=== PATIENT | female | born 1995 | race Caucasian/White ===

== ENCOUNTER 2017-05-25 19:28 | Emergency (ER) | payer OTHER ==
[2017-05-25] MEDS ORDERED: FLUCONAZOLE 150 MG TAB PO ONE (19:48)
[2017-05-25] MEDS ORDERED: cefTRIAXone SODIUM 1 GM VIAL IM ONE (19:48)
[2017-05-25 19:50] VITALS: BP 132/77; TEMP 98.9; O2SAT 97
--- NOTE | 2017-05-25 19:52 | ED.PDOC ---
History of Present Illness - General Chief Complaint: Abdominal Pain Stated Complaint: belly button drainage, bloating, right abd pain Time Seen by Provider: 05/25/17 19:48 Information Source: patient Exam Limitations: no limitations - History of Present Illness Initial Comments: Patient comes in for 1 day history of pain in the umbilicus with yellow drainage and swelling. She states some chills last night. She denies any emesis or nausea. She had a normal BM 2 days ago. She denies trauma to the area or piercing. Patient is otherwise healthy but does have HTN since delivery of her last child. Abdominal Pain Onset Location: periumbilical Pain Radiation: no radiation Quality: mild Timing/Duration: 24 hours Improving Factors: nothing Worsening Factors: nothing Associated Symptoms: fever/chills Review of Systems - Review of Systems Constitutional: States: chills. Denies: fever EENTM: States: no symptoms reported Respiratory: States: no symptoms reported. Denies: cough, short of breath, wheezing Cardiology: States: no symptoms reported. Denies: chest pain Gastrointestinal/Abdominal: States: abdominal pain. Denies: diarrhea, nausea, vomiting Genitourinary: States: no symptoms reported Skin: States: see HPI Past Medical History (General) - Patient Medical History Hx Seizures: No Hx Stroke: No Hx Dementia: No Hx Asthma: No Hx of COPD: No Hx Congestive Heart Failure: No Hx Pacemaker: No Hx Hypertension: Yes Hx Thyroid Disease: No Hx Diabetes: No Hx Gastroesophageal Reflux: No Hx Renal Disease: No Hx Cancer: No Hx of HIV: No Hx Hepatitis C: No Hx MRSA: No - Vaccination History Hx Tetanus, Diphtheria Vaccination: Yes Hx Influenza Vaccination: Yes Hx Pneumococcal Vaccination: No - Social History Hx Tobacco Use: Yes Hx Alcohol Use: No Hx Substance Use: No Hx Substance Use Treatment: No Hx Depression: Yes - Female History Hx Last Menstrual Period: 06/29/14 Patient : Yes Expected Date of Delivery:: 03/25/17 Hx Gestational Age: 33 Family Medical History - Family History Mother Family History: Unknown Living Status: Unknown Hx Family;Other: Kidney problems in family Physical Exam - Physical Exam General Appearance: Alert, Comfortable, No apparent distress Eyes, Ears, Nose, Throat Exam: PERRL/EOMI Respiratory: chest non-tender, lungs clear, normal breath sounds, no respiratory distress Cardiovascular/Chest: normal peripheral pulses, regular rate, rhythm, no edema, no JVD, no murmur Gastrointestinal/Abdominal: other - umbilicus with erythema in the interior without fluctulance and thin yellow drainage seen. Beefy red erythema with no calor not extending to the abdomen. No ulceration seen Progress - Progress Progress: 05/25/17 20:14 Laboratory Results WBC 12.1 K/mm3 (4.8-10.8) H 05/25/17 19:53 RBC 5.02 M/mm3 (4.20-5.40) 05/25/17 19:53 Hgb 14.4 gm/dL (12.0-16.0) 05/25/17 19:53 Hct 43.1 % (36.0-47.0) 05/25/17 19:53 MCV 85.9 fl (81.0-99.0) 05/25/17 19:53 MCH 28.6 pg (27.0-31.0) 05/25/17 19:53 MCHC 33.4 g/dL (33.0-37.0) 05/25/17 19:53 RDW 13.5 % (11.5-14.5) 05/25/17 19:53 Plt Count 263 K/mm3 (130-400) 05/25/17 19:53 MPV 7.7 fl (7.40-10.4) 05/25/17 19:53 Absolute Neuts (auto) 8.80 K/uL (1.8-6.8) H 05/25/17 19:53 Absolute Lymphs (auto) 2.40 K/uL (1.0-3.4) 05/25/17 19:53 Absolute Monos (auto) 0.80 K/uL (0.2-0.8) 05/25/17 19:53 Absolute Eos (auto) 0.10 K/uL (0.0-0.4) 05/25/17 19:53 Absolute Basos (auto) 0.00 K/uL (0.0-0.1) 05/25/17 19:53 Neutrophils % 72.8 % (42.0-78.0) 05/25/17 19:53 Lymphocytes % 19.9 % (20.0-50.0) L 05/25/17 19:53 Monocytes % 6.5 % (2.0-9.0) 05/25/17 19:53 Eosinophils % 0.6 % (1.0-5.0) L 05/25/17 19:53 Basophils % 0.2 % (0.0-2.0) 05/25/17 19:53 Serum HCG, Qual Negative 05/25/17 19:53 Departure - Departure Clinical Impression: Cellulitis Qualifiers: Site of cellulitis: other site Qualified Code(s): L03.818 - Cellulitis of other sites Disposition: Discharge to Home or Self Care Condition: Good Departure Forms: ED Discharge - Pt. Copy, Patient Portal Self Enrollment Instructions: DI for Abdominal Pain-Adult Diet: regular diet Prescriptions: Cephalexin Monohydrate [Keflex] 500 mg PO TID 10 Days #30 cap Fluconazole [Diflucan] 200 mg PO DAILY 2 Days #2 tab Home Medications: Ambulatory Orders Nitrofurantoin Monohydrate Mac [Macrobid] 100 mg PO BID #14 cap 11/25/14 Amoxicillin [Amoxil] 500 mg PO TID #30 cap 02/20/15 Cephalexin Monohydrate [Keflex] 500 mg PO TID 10 Days #30 cap 05/25/17 Fluconazole [Diflucan] 200 mg PO DAILY 2 Days #2 tab 05/25/17 Additional Instructions: Cellulitis with possible fungal component. Patient to take Keflex 500 mg po TID x 10 days. Diflucan 200 mg po qd x 2 days. Patient to return to ER for increased temp >100.5, increased redness, increase pain, or swelling.
== END 2017-05-25 20:21 | disposition home or self-care (01) ==
LOC: ER 19:28
DX: L03.316 Cellulitis of umbilicus (principal); I10 Essential (primary) hypertension; Z87.891 Personal history of nicotine dependence
CPT/HCPCS: 36415; 84703; 85025; J0696

== ENCOUNTER 2017-09-17 15:12 | Emergency (ER) | payer OTHER ==
[2017-09-17] MEDS ORDERED: traMADol 37.5MG/APAP 325MG 1 EA TAB PO ONE (15:26)
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
[2017-09-17 18:24] VITALS: BP 116/69; TEMP 98.6; O2SAT 99
== END 2017-09-17 18:23 | disposition home or self-care (01) ==
LOC: ER 15:12
DX: T74.11XA Adult physical abuse, confirmed, initial encounter (principal); S02.2XXA Fracture of nasal bones, initial encounter for closed fracture; S00.83XA Contusion of other part of head, initial encounter; I10 Essential (primary) hypertension; F32.9 Major depressive disorder, single episode, unspecified; Y07.03 Male partner, perpetrator of maltreatment and neglect; Y04.0XXA Assault by unarmed brawl or fight, initial encounter; Z87.891 Personal history of nicotine dependence; Z91.040 Latex allergy status; Y92.9 Unspecified place or not applicable

== ENCOUNTER → 2018-04-29 | Outpatient (CLI) | payer OTHER ==
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
== END ==
LOC: YCFC.O 11:49
PROVIDERS: ATTEND Family Medicine
DX: M54.5 Low back pain (principal)